=== PATIENT | male | born 1980 | race Caucasian/White ===

== ENCOUNTER → 2022-02-04 14:23 | Outpatient (CLI) | payer BC, SELFPAY ==
--- NOTE | 2022-02-04 14:30 | XR_ITS ---
FINAL REPORT CLINICAL HISTORY: right hip pain FINDINGS: Right hip Three views were obtained. There is no acute fracture or dislocation. There are mild degenerative changes of both hips. There are chronic calcifications superior to the greater trochanters bilaterally. There are postoperative changes in both femurs. IMPRESSION: Degenerative and chronic appearing findings. Reviewed, Interpreted and Dictated by Popeye Freire III, MD Transcribed by Ryanne Conway Authenticated and [facility]
--- NOTE | 2022-02-04 14:30 | XR_ITS ---
FINAL REPORT CLINICAL HISTORY: right knee pain FINDINGS: Right knee Three views were obtained. There is no acute fracture or dislocation. There are postoperative changes in the right femur. The joint spaces appear normal. No soft tissue abnormality is identified. IMPRESSION: No acute process. Reviewed, Interpreted and Dictated by Popeye Freire III, MD Transcribed by Ryanne Conway Authenticated and [facility] [place] [place]
== END ==
PROVIDERS: PCP Family Medicine; Visit Provider Orthopaedic Surgery
DX: M25.551 Pain in right hip (principal); M25.561 Pain in right knee
CPT/HCPCS: 73502; 73564

== ENCOUNTER → 2022-02-11 07:41 | Outpatient (CLI) | payer BC, SELFPAY ==
--- NOTE | 2022-02-11 07:47 | MR_ITS ---
FINAL REPORT CLINICAL HISTORY: knee pain. KNEE INSTABILITY for years. medial sided knee pain beside patella. no injury or trauma. FINDINGS: Multiplanar MR imaging of the right knee was performed without contrast. There is a tear of the posterior horn of the medial meniscus which extends to the meniscal surface pain . There is a posterior, parameniscal cyst measuring 14 mm in transverse dimension. The lateral meniscus is intact. The anterior and posterior cruciate ligaments are intact. The medial collateral ligament and lateral ligamentous complex are intact. The patellar and quadriceps tendons are intact. There is no evidence of fracture. There is mild chondromalacia of the patella. No significant joint effusion is seen. The musculature is intact. No soft tissue mass or cyst is identified. IMPRESSION: Tear of the posterior horn of the medial meniscus extending to the meniscal surface with 14 mm posterior parameniscal cyst. Small joint effusion. Mild chondromalacia patella. Reviewed, Interpreted and Dictated by Popeye Freire III, MD Transcribed by Sintia Martinez Authenticated and [facility]
== END ==
PROVIDERS: PCP Family Medicine; Visit Provider Orthopaedic Surgery
DX: S83.511A Sprain of anterior cruciate ligament of right knee, initial encounter (principal)
CPT/HCPCS: 73721

== ENCOUNTER → 2022-07-06 14:14 | Outpatient (CLI) | payer BC, SELFPAY ==
[2022-07-06 15:03] LABS: Microscopic, Urine URINE MICROSCOPIC (MICROSCOPIC)
[2022-07-06 15:17] LABS: Appearance,Urine CLEAR (Clear); Bilirubin,Urine Negative (Negative); Blood, Urine TRACE-I (Negative); Color,Urine YELLOW (Yellow); Glucose,Urine (UA) Negative (Negative); Ketones,Urine Negative (Negative); Leukocyte Esterase,Urine Negative (Negative); Nitrate,Urine Negative (Negative); Protein,Urine Negative (Negative); Urobilinogen,Urine 0.2 EU/dl (0.2)
[2022-07-06 15:17] LABS: Chloride 103 mmol/L (98-107)
[2022-07-06 15:18] LABS: Potassium 4.6 mmoL/L (3.5-5.1); Sodium 139 mmol/L (136-145)
[2022-07-06 15:20] LABS: Alanine Aminotransferase 30 U/L (12-78); Aspartate Amino Transferase 30 U/L (17-59); Blood Urea Nitrogen 10 mg/dl (9-20); Estimated Glomerular Filt Rate 93 ml/min (>60); GFR (African American) 113 ML/MIN (>60)
[2022-07-06 15:21] LABS: Albumin Level 5.1 g/dl (3.5-5.0); Alkaline Phosphatase 114 U/L (38-126); Anion Gap 12.6 mEq/L (5-15); Bilirubin,Total 0.6 mg/dl (0.2-1.3); Calcium 9.5 mg/dl (8.4-10.2); Carbon Dioxide 28 mmol/L (22.0-30.0); Globulin 2.5 g/dL (1.3-3.2); Glucose 79 mg/dl (74-100); Total Protein,Serum 7.6 g/dl (6.3-8.2)
[2022-07-06 15:46] LABS: Squamous Epithelial Cell,Urine Occasional #/hpf (0-5); WBC,Urine Occasional #/hpf (0-3)
[2022-07-06 16:59] LABS: Basophils # 0.1 K/mm3 (0-0.2); Basophils % 1.4 % (0.1-2.0); Eosinophils # 0.3 K/mm3 (0.0-0.4); Eosinophils % 3.3 % (0.1-12.0); Hematocrit 53.5 % (42.0-52.0); Hemoglobin 17.5 g/dL (14.1-18.0); Lymphocytes # 2.3 K/mm3 (0.7-4.5); Lymphocytes % 26.1 % (10-50); Mean Corpuscular HGB Conc 32.8 g/dL (31.8-35.4); Mean Corpuscular Hemoglobin 29.8 pg (27.0-31.2); Mean Corpuscular Volume 90.9 fl (80-94); Monocytes # 0.5 K/mm3 (0.1-1.0); Monocytes % 5.8 % (1.7-9.3); Neutrophils # 5.7 K/mm3 (1.8-7.8); Neutrophils % 63.5 % (37.0-80.0); Platelet Count 303 K/mm3 (142-424); Red Blood Count 5.88 M/mm3 (4.60-6.20); Red Cell Distribution Width 13.6 % (11.5-17.5)
== END ==
PROVIDERS: PCP Family Medicine; Visit Provider Orthopaedic Surgery
DX: Z01.818 Encounter for other preprocedural examination (principal); S83.241A Other tear of medial meniscus, current injury, right knee, initial encounter
CPT/HCPCS: 36415; 80053; 81001; 85025

== ENCOUNTER 2022-07-12 10:44 | Day surgery (SDC) | payer BC, SELFPAY ==
[2022-07-11 08:38] VITALS: BMI 31.3
[2022-07-12] VITALS (10 sets, daily range): BP systolic 126–162; BP diastolic 69–99; PULSE 62–100; RESP 14–20; TEMP 36.2–43; O2SAT 94–97
--- NOTE | 2022-07-12 12:24 | P.PN_ITS ---
[facility] Disclaimer: The information contained in this section may have been updated after the patient was seen, as this information can be updated by other users. Medical History History of femur fracture No significant past medical history Surgical History History of surgery on extremity Family History Other No significant family history Social History Smoking Status: Current every day smoker tobacco type: cigarettes packs per day: 1 alcohol intake: current substance use type: denies use current occupational status: other Travel in the last 8 weeks: None [facility] Anesthesia Checklist Patient Identification Patient Identification: Arm Band Structural Data Admitted From: Home Planned Operative Procedure/s: Right Knee Arthroscopy, Partial Medial Meniscectom Consent for Planned Operative Procedure(s) Verified: Yes Verified Documents: Surgical Consent and History and Physical NPO Status Verified Time NPO: 00:00 Additional verifications Anesthesia Reactions: No Hx Blood Transfusions: No Blood Transfusion Reaction: No Airway Assessment C-Spine Mobility Assessed: Yes TMJ Mobility Assessed: Yes Dentition: Edentulous Neurological Assessment Level of Consciousness: Awake and Alert Anesthesia Plan Anesthesia Risk discussed: Yes Anesthesia Plan: Verified ASA Class: II Anesthesia Type: General
--- NOTE | 2022-07-12 14:17 | P.OP_ITS ---
Date of procedure: 07/12/22 Pre-op Diagnosis:: Right knee medial meniscus tear Post-op Diagnosis:: Right knee medial meniscus tear Procedure performed:: Right knee arthroscopy with partial medial meniscectomy Surgeon:: Reinaldo Cao MD Scene Painter(s):: None [employer]ING [employer]TER:: Nancy Stack Anesthesia: GETA and local Estimated blood loss (mL): 5 Clinical Note:: Willy is a pleasant 41-year-old male has been dealing with right knee pain. MRI revealed a large posterior horn medial meniscus tear with a parameniscal cyst. He has failed conservative treatment measures. We discussed all the risks, benefits and alternatives to right knee arthroscopy for partial medial meniscectomy. He agreed to proceed and surgical consent form was signed. Operative findings:: Right knee large vertical tear inner edge posterior horn medial meniscus. Minimal chondromalacia medial and patellofemoral compartments. Ligaments are intact. Operative note:: The patient was seen in the preoperative holding area. The right knee was marked to confirm the correct operative site. He was seen by anesthesia. He received Ancef 2 g ibuprofen antibiotics within 1 hour incision time. He was brought back to the operating room. General anesthesia was induced that difficulty. Right lower extremity was prepped and draped in usual sterile fashion. Timeout was performed to confirm right knee arthroscopy on patient Willy Gunn. I made an anterolateral viewing portal with an 11 blade scalpel. Arthroscope was introduced into the knee joint. Diagnostic arthroscopy commenced. I made an anteromedial portal localizing this with a spinal needle and this incision was made with an 11 blade and dilated with a trocar. He was seen to have very minimal chondromalacia the patella and trochlea. No unstable cartilage flaps. Cruciate ligaments were seen to be intact. Lateral meniscus was intact with minimal lateral compartment chondromalacia. Also very minimal chondromalacia in the medial compartment. Probing of the posterior horn the medial meniscus revealed a large vertical tear at the inner edge of the posterior horn. Not amenable to repair as it was in the white white to white-red zone. We proceeded with partial medial meniscectomy. I used a combination of the upbiter and a 3.5 mm shaver to resect this tear back to intact posterior horn of the medial meniscus. I had to resect approximately the inner half of the posterior horn the medial meniscus as well as the undersurface at the remaining posterior horn back to smooth stable border. Final pictures were taken and saved. Arthroscopy instruments removed from the joint. Arthroscopy fluid suctioned and drained from the joint. Portals were closed with 4-0 Monocryl subcuticular sutures. I injected 20 cc of half percent Naropin from the superolateral approach for local anesthetic. Sterile dressing was applied with Steri-Strips, 4 x 4's, soft roll and an Tyler bandage. Anesthesia reversed without difficulty. Transferred to recovery in stable condition. All sponge and needle counts correct x2. Tourniquet time (min): 0 Condition: stable Disposition: PACU Specimens:: None Complications:: None
--- NOTE | 2022-07-12 14:22 | EXP.ANES.I ---
[facility] Anesthesia Record Part I Anesthesia Record I Intake, IV Amount: 600 Estimated blood loss (mL): 2 Urine output (mL): 0 Blood Pressure: 160/95 SaO2: 97 Pulse Rate: 100 Respiratory Rate: 20 Temperature: 97.1 F Patient is:: Drowsy and Oral/Nasal airway Stable to PACU at:: 14:20
--- NOTE | 2022-07-13 07:35 | P.PNANES_ITS ---
[facility] Anesthesia Record Part II Anesthesia Record Part II Discharge Time: 14:50 Destination: Surgical Day Care (OP Surgery) PACU nurse assessment reviewed?: Yes Patient Condition:: Good Anesthesia Complications:: None Swallowing reflex intact?: Yes Cyanosis?: No Blood Pressure: 150/77 Pulse Rate: 73 Temperature: 97.1 F Mental Status: Alert & Oriented Pain level:: 0 Nausea and/or vomitting:: None Intake, IV Amount: 0
[2022-07-13 07:36] VITALS: BP 150/77; PULSE 73; TEMP 36.2
== END 2022-07-12 15:25 | disposition home or self-care (01) ==
PROVIDERS: PCP Family Medicine; Visit Provider Orthopaedic Surgery
PROC: (CPT 29870; principal; 2022-07-12 12:30)
DX: M23.91 Unspecified internal derangement of right knee (principal); F17.210 Nicotine dependence, cigarettes, uncomplicated; M25.561 Pain in right knee
CPT/HCPCS: 29881; 96374